=== PATIENT | female | born 1985 | race Caucasian/White ===

== ENCOUNTER 2019-11-04 09:53 | Day surgery (SDC) | payer BC ==
[~2019-11-04] VITALS: Ht 170.2 cm; Wt 69.4 kg
--- NOTE | 2019-11-04 13:20 | NUR ---
11/04/19 1320 Sheets,Gissel 1316 PT ARRIVED TO PACU ON 6L VIA MASK, ORAL AIRWAY IN PLACE. RESP EVEN AND UNLABORED. VSS.
--- NOTE | 2019-11-04 14:53 | NUR ---
1415: PATIENT BACK IN DAY SURGERY ROOM FROM PACU. C/O CRAMPING PAIN 08/16. DENIES NEED FOR PAIN MEDS AT THIS TIME. PERIPAD IN PLACE. SMALL AMOUNT OF RED DRAINAGE ON PERIPAD. VS CHECKED. IV SITE WNL. SCDs ON. GIVEN ICE WATER AND CRACKERS. CALL LIGHT WITHIN REACH.
[2019-11-04] MEDS ORDERED: IBUPROFEN800 MG PO (15:09)
[2019-11-04] MEDS ORDERED: NORCO 5-325 TA1 EACH PO (15:09)
--- NOTE | 2019-11-04 15:42 | NUR ---
1520: VS CHECKED. PATIENT TOLERATED ICE WATER AND CRACKERS. RATES PAIN 2/10. DENIES NEED FOR PAIN MEDS AT THIS TIME. PATIENT ASSISTED OOB AND UP TO BATHROOM. VOID APPROXIMATELY 200 ML. GAIT STEADY TO AND FROM BATHROOM. IV DC'D WNL. TIP INTACT. DRESSING APPLIED. PATIENT GETTING DRESSED INDEPENDENTLY. 1540: PATIENT DISCHARGED TO HOME WITH VIA WHEELCHAIR.
--- NOTE | 2019-11-09 11:14 | PATH ---
[facility] [address] [place], [place] [address] Signed SPECIMEN(S): A PRODUCTS OF CONCEPTION SPECIMEN SOURCE: A. PRODUCTS OF CONCEPTION CLINICAL HISTORY: Missed AB. Suction D C. FINAL PATHOLOGIC DIAGNOSIS: Products of conception, dilation and curettage: - Immature chorionic villi and immature membranes, consistent with products of conception. NAL:cml:C2NR MICROSCOPIC EXAMINATION: Histologic sections of all submitted blocks are examined by light microscopy. These findings, together with the gross examination, support the pathologic diagnosis. GROSS DESCRIPTION: The specimen, labeled "AD," and designated "products of conception" per the requisition is received in formalin and consists of multiple fragments of brown-gilman to red-brown and hemorrhagic soft to villous tissue and clot (11.5 x 8.0 x 2.5 cm in aggregate). Town Manager sections submitted in cassette (A1). AC (under the direct supervision of a pathologist) The Gross Description was prepared using a voice recognition system. The report was reviewed for accuracy; however, sound-alike word errors, addition and/or deletions may occur. If there is any question about this report, please contact Client Services. PERFORMING LABORATORY: The technical component was performed by [employer], [address] [place] [id number] (Structural Layout Worker: Yessica Bee MD; CLIA# [id number]). [facility], [address] [address] (CLIA# [id number]). Diagnostician: Rashmi Gardner MD Pathologist Electronically Signed 11/09/2019 PATIENT NAME: KIM STILES PATHOLOGY DATE OF : 85 REPORT #: [id number] PHYSICIAN: [facility] PCP: NO PRIMARY CARE PHYSICIAN REPORT IS CONFIDENTIAL AND NOT TO BE RELEASED WITHOUT AUTHORIZATION [address] [address] Signed Copies: ~ PATIENT NAME: KIM STILES PATHOLOGY DATE OF : 85 REPORT #: [id number] PHYSICIAN: [facility] PCP: NO PRIMARY CARE PHYSICIAN REPORT IS CONFIDENTIAL AND NOT TO BE RELEASED WITHOUT AUTHORIZATION
--- NOTE | 2019-11-09 16:25 | OR ---
[facility] [address] [place] [id number] Signed DATE OF OPERATION: 11/04/2019 SURGEON: Mekhi Tabor MD Patient of Dr. Tabor. PREOPERATIVE DIAGNOSIS: Missed . POSTOPERATIVE DIAGNOSIS: Missed . PROCEDURE: Suction D and C. ANESTHESIA: General. ESTIMATED BLOOD LOSS: 300 mL. SPECIMEN: Uterine contents. DRAINS: None. PACKING: None. FINDINGS: Vagina; no blood. Cervix; thick, closed. Uterus; 10-week size and soft, moderate amount of normal-appearing products of conception within the uterine cavity. No adnexal masses palpable. COMPLICATIONS: None. DESCRIPTION OF PROCEDURE: The patient was brought to the operating room, placed supine position. After adequate Electronically Signed By: MEKHI TABOR MD 11/09/19 1625 PATIENT NAME: KIM STILES Tony OPERATIVE REPORT DATE OF : 85 REPORT #: [id number] PHYSICIAN: MEKHI TABOR MD PCP: NO PRIMARY CARE PHYSICIAN REPORT IS CONFIDENTIAL AND NOT TO BE RELEASED WITHOUT AUTHORIZATION [address] [address] Signed general anesthesia was obtained, was placed in dorsal lithotomy position, prepped and draped in usual sterile fashion. Weighted speculum was placed in the vagina and the anterior lip of the cervix grasped with an Allis clamp. The cervix was serially dilated up to a #10 dilator. A #10 curved suction tip curette was attached to the suction machine, which was then tested for correct pressure. The curette was then carefully introduced through the cervix into the uterine cavity, gently to the fundus, and then scraped in 360 degree fashion removing moderate amount of normal-appearing products of conception including fluid and placental tissue; this was done several times until no additional tissue was removed. Normal empty field of the uterus could be noted. The curette was removed. The uterus was repalpated, noted to be smaller and more firm. The patient was given Pitocin and IV bag. During the procedure, uterus did contract well and at the end the procedure had good hemostasis, and all instruments were removed from the uterus. The Allis clamp removed and the cervix noted to have good hemostasis. The weighted speculum was removed. The patient tolerated the procedure well, went to recovery room in good condition. The sponge and instrument counts were correct in the procedure. The uterine contents were sent to Pathology for identification. MD KEVIN Rivers/MODL /[id number] Copies: ~ Electronically Signed By: MEKHI TABOR MD 11/09/19 1625 PATIENT NAME: STILES,KIM N OPERATIVE REPORT DATE OF : 85 REPORT #: [id number] PHYSICIAN: MEKHI TABOR MD PCP: NO PRIMARY CARE PHYSICIAN REPORT IS CONFIDENTIAL AND NOT TO BE RELEASED WITHOUT AUTHORIZATION
== END 2019-11-04 15:40 | disposition home or self-care (01) ==
LOC: OPS 09:53
PROVIDERS: General Practice
PROC: 10D17ZZ Extraction of Products of Conception, Retained, Via Natural or Artificial Opening (ICD-10-PCS; principal; 2019-11-04 09:30)
DX: O02.1 Missed abortion (principal)
CPT/HCPCS: 00952; J1100; J1885; J2001; J2405; J2590; J2704; J2790; J3010; J7121

== ENCOUNTER 2020-09-30 16:17 | Inpatient (IN) | payer BC ==
[~2020-09-30] VITALS: Ht 170.2 cm; Wt 80.3 kg
[~2020-09-30 16:17] MED LIST: IBUPROFEN800 MG PO; NORCO 5-325 TA1 EACH PO
--- NOTE | 2020-09-30 17:27 | NUR ---
RAPID SWAB COLLECTED
[2020-09-30] MEDS ORDERED: PRENATAL VITAM1 EAC6 PO (20:18)
--- NOTE | 2020-10-01 11:02 | PR ---
[facility] [address] [facility] [place] [place] [address] Signed PP Progress Notes Datetime Report Generated by CPN: 10/01/2020 11:02 SUBJECTIVE: [id number] Pain: Within Normal Limits Nausea/Vomiting: Denies Vital Signs: [id number] Vital Signs: Reviewed; Within Normal Limits EXAM: Ongoing Abdomen/Uterus: Normal Lochia: Normal Extremities: Normal IMPRESSION/PLAN/PROCEDURES: [id number] Impression: Normal Progression Plan: Continue Present Management Procedures: None Progress Notes: Doing well, without complaint. Signing Physician: Vane Tabor MD Copies: ~ *Electronically Signed* 10/01/20 1102 VANE TABOR MD PATIENT NAME: KIM STILES PROGRESS NOTE DATE OF : 85 PHYSICIAN: VANE TABOR MD RPT #: [id number] REPORT IS CONFIDENTIAL AND NOT TO BE RELEASED WITHOUT AUTHORIZATION
--- NOTE | 2020-10-02 12:28 | PR ---
[facility] [address] [facility] [place] [address] Signed PP Progress Notes Datetime Report Generated by CPN: 10/02/2020 12:28 SUBJECTIVE: [id number] Pain: Within Normal Limits Nausea/Vomiting: Denies Vital Signs: [id number] Vital Signs: Reviewed; Within Normal Limits Notable Details: PP Hgb/Hct = 13.3/39.4 EXAM: Ongoing Abdomen/Uterus: Normal Lochia: Normal Extremities: Normal IMPRESSION/PLAN/PROCEDURES: [id number] Impression: Normal Progression Plan: Discharge Procedures: None Progress Notes: Doing well, without complaint, ready to go home. Signing Physician: Vane Tabor MD Copies: ~ *Electronically Signed* 10/02/20 1228 VANE TABOR MD PATIENT NAME: KIM STILES PROGRESS NOTE DATE OF : 85 PHYSICIAN: VANE TABOR MD RPT #: [id number] REPORT IS CONFIDENTIAL AND NOT TO BE RELEASED WITHOUT AUTHORIZATION
== END 2020-10-02 12:45 | disposition home or self-care (01) | DRG 807 ==
LOC: FBCO 16:17 → FBC 16:39
PROVIDERS: ADMIT Obstetrics & Gynecology; ATTEND General Practice
PROC: 10E0XZZ Delivery of Products of Conception, External Approach (ICD-10-PCS; principal; 2020-09-30)
PROC: 00HU33Z Insertion of Infusion Device into Spinal Canal, Percutaneous Approach (ICD-10-PCS; 2020-09-30)
PROC: 3E0R3BZ Introduction of Anesthetic Agent into Spinal Canal, Percutaneous Approach (ICD-10-PCS; 2020-09-30)
PROC: 0KQM0ZZ Repair Perineum Muscle, Open Approach (ICD-10-PCS; 2020-09-30)
PROC: 10907ZC Drainage of Amniotic Fluid, Therapeutic from Products of Conception, Via Natural or Artificial Opening (ICD-10-PCS; 2020-09-30)
PROC: 3E0234Z Introduction of Serum, Toxoid and Vaccine into Muscle, Percutaneous Approach (ICD-10-PCS; 2020-10-01)
DX: O24.420 Gestational diabetes mellitus in childbirth, diet controlled (principal); Z37.0 Single live birth; Z20.822 Contact with and (suspected) exposure to COVID-19; Z3A.37 37 weeks gestation of pregnancy; O26.893 Other specified pregnancy related conditions, third trimester; O70.1 Second degree perineal laceration during delivery; O99.824 Streptococcus B carrier state complicating childbirth; Z67.11 Type A blood, Rh negative; Z79.82 Long term (current) use of aspirin
CPT/HCPCS: 01960; 36415; 83030; 85027; 86850; 86870; 86900; 86901; A9270; J2001; J2540; J2590; J2790; J2795; J7121; U0003